=== PATIENT | female | born 2000 | race Two or more races ===

== ENCOUNTER 2021-09-02 20:14 | Emergency (ER) | payer MEDICAID ==
[~2021-09-02] VITALS: Ht 170.2 cm; Wt 121.4 kg
[2021-09-02] MEDS ORDERED: AMOX TR/POT CLAV 875 MG/125 MG TABLET PO ONE (20:45)
[2021-09-02] MEDS ORDERED: PERTUSS(ACELL),DIPH,TET VAC/PF 0.5 ML SYRINGE IM. ONE (20:45)
[2021-09-02 21:30] VITALS: BP 134/77
[2021-09-02] MEDS ORDERED: IBUPROFEN 800 MG TABLET ONE (22:00)
[2021-09-02] MEDS ORDERED: IBUPROFEN 800 MG TABLET PO ONE (22:15)
== END 2021-09-02 22:00 | disposition home or self-care (01) ==
LOC: EMS 20:17
DX: S71.111A Laceration without foreign body, right thigh, initial encounter (principal); W54.0XXA Bitten by dog, initial encounter; Y93.89 Activity, other specified; Y92.89 Other specified places as the place of occurrence of the external cause; Y99.8 Other external cause status
CPT/HCPCS: 90471; 90715; 99283

== ENCOUNTER 2022-02-10 17:00 | Emergency (ER) | payer MEDICAID ==
[~2022-02-10] VITALS: Ht 170.2 cm; Wt 127.3 kg
[2022-02-10] MEDS ORDERED: IBUPROFEN 800 MG TABLET PO ONE (18:15)
[2022-02-10 21:26] VITALS: BP 138/78
== END 2022-02-10 21:31 | disposition home or self-care (01) ==
LOC: EMS 17:00
DX: S93.402A Sprain of unspecified ligament of left ankle, initial encounter (principal); S93.602A Unspecified sprain of left foot, initial encounter; X50.1XXA Overexertion from prolonged static or awkward postures, initial encounter; Y93.89 Activity, other specified; Y92.89 Other specified places as the place of occurrence of the external cause; Y99.8 Other external cause status
CPT/HCPCS: 99284

== ENCOUNTER 2022-05-18 19:18 | Emergency (ER) | payer MEDICAID ==
[~2022-05-18] VITALS: Ht 167.6 cm; Wt 90.9 kg
[2022-05-18] MEDS ORDERED: KETOROLAC TROMETHAMINE 60 MG/2 ML VIAL IM ONE (21:15)
[2022-05-18 22:14] VITALS: BP 128/72
== END 2022-05-18 22:23 | disposition home or self-care (01) ==
LOC: EMS 19:21
DX: S20.212A Contusion of left front wall of thorax, initial encounter (principal); V49.59XA Passenger injured in collision with other motor vehicles in traffic accident, initial encounter; Y93.89 Activity, other specified; Y92.89 Other specified places as the place of occurrence of the external cause; Y99.8 Other external cause status
CPT/HCPCS: 71046; 96372; 99283; J1885

== ENCOUNTER 2023-06-01 17:14 | Emergency (ER) | payer MEDICAID ==
[~2023-06-01] VITALS: Ht 170.2 cm; Wt 140.0 kg
[2023-06-01] MEDS ORDERED: SODIUM CHLORIDE 0.9% 1,000 ML IV ONE (17:30)
[2023-06-01] MEDS ORDERED: ONDANSETRON HCL 4 MG/2 ML VIAL IVP ONE (17:30)
[2023-06-01 17:43] LABS: GLUCOMETER DEV NAME(LOC) ERT.5
[2023-06-01 17:55] LABS: ANION GAP 7 mmol/L (8-16); CALCIUM, TOTAL 9.7 mg/dL (8.8-10.5); CARBON DIOXIDE 28 mmol/L (22-29); CHLORIDE 100 mmol/L (98-107); CREATININE 0.65 mg/dL (0.60-1.30); GLOMERULAR FILTR. RATE CALC > 60 mL/min (>60); GLUCOSE,RANDOM 97 mg/dL (70-110); POTASSIUM 4.1 mmol/L (3.5-5.1); SODIUM SERUM 135 mmol/L (136-145)
[2023-06-01 17:57] LABS: BASOPHILS % (AUTO) 0.5 % (0.0-2.0); EOSINOPHILS % (AUTO) 1.4 % (1.0-6.0); HEMATOCRIT 40.6 % (36-46); HEMOGLOBIN 13.7 g/dL (12.0-16.0); LYMPHOCYTES # (AUTO) 4.8 K/uL (1.0-4.8); LYMPHOCYTES % (AUTO) 42.6 % (22.0-44.0); MEAN CORPUSCULAR HEMOGLOBIN 29.4 pg (26.0-34.0); MEAN CORPUSCULAR HGB CONC 33.8 G/dL (31.0-37.0); MEAN CORPUSCULAR VOLUME 87 fL (80-100); MONOCYTES # (AUTO) 0.6 K/uL (0.1-1.0); MONOCYTES % (AUTO) 5.4 % (2.0-9.0); NEUTROPHILS # (AUTO) 5.6 K/uL (1.8-7.7); NEUTROPHILS % (AUTO) 50.1 % (40.0-70.0); PLATELET COUNT (AUTO) 337 K/uL (150-450); RED BLOOD CELL COUNT(AUTO) 4.67 MIL/uL (4.00-5.20); RED CELL DISTRIBUTION WIDTH 13.7 % (11.5-14.5)
[2023-06-01] MEDS ORDERED: METF-1211 PO (17:58)
[2023-06-01 18:07] LABS: ALANINE AMINOTRANSFERASE 59 U/L (12-78); ALKALINE PHOSPHATASE 87 U/L (46-116); ASPARTATE AMINOTRANSFERASE 25 U/L (15-37); BILIRUBIN,TOTAL 0.4 mg/dL (0.1-1.0); HCG,QUANTITATIVE < 1 mIU/mL (0-6); LIPASE 82 U/L (73-393); TOTAL PROTEIN, SERUM 8.6 g/dL (6.4-8.2)
[2023-06-01 19:43] LABS: APPEARANCE,URINE CLEAR (CLEAR); BILIRUBIN,URINE NEGATIVE (NEGATIVE); GLUCOSE, URINE (UA) NEGATIVE (NEGATIVE); KETONES,URINE NEGATIVE (NEGATIVE); LEUKOCYTE ESTERASE ,URINE NEGATIVE (NEGATIVE); NITRATE,URINE NEGATIVE (NEGATIVE); OCCULT BLOOD,URINE NEGATIVE (NEGATIVE); PH,URINE 5.5 (5.0-8.0); PROTEIN,URINE NEGATIVE (NEGATIVE); SPECIFIC GRAVITIY, URINE 1.011 (1.003-1.030); UROBILINOGEN,URINE <=1.0 mg/dL (<=1.0)
[2023-06-01 19:57] VITALS: BP 149/78; PULSE 72; RESP 17; TEMP 98.3
[2023-06-01] MEDS ORDERED: ONDA-104 PO (19:57)
== END 2023-06-01 20:38 | disposition home or self-care (01) ==
LOC: EMS 17:16
DX: R10.30 Lower abdominal pain, unspecified (principal); E11.9 Type 2 diabetes mellitus without complications
CPT/HCPCS: 99283; 96374; 96361; 80053; 81003; 82962; 83690; 84702; 85025; 36415; J2405; J7030

== ENCOUNTER 2023-06-14 19:15 | Emergency (ER) | payer MEDICAID ==
[~2023-06-14] VITALS: Ht 170.2 cm; Wt 140.0 kg
[~2023-06-14 19:15] MED LIST: METF-1211 PO; ONDA-104 PO
[2023-06-14 20:23] LABS: COVID AG,FIA SOURCE NASAL SWAB
[2023-06-14 20:37] LABS: RAPID GROUP A STREP NEGATIVE (NEGATIVE)
[2023-06-14 20:58] LABS: INFLUENZA TYPE A NEGATIVE FOR TYPE A (NEGATIVE); INFLUENZA TYPE B NEGATIVE FOR TYPE B (NEGATIVE)
[2023-06-14] MEDS ORDERED: ACET-2080 PO (21:51)
[2023-06-14] MEDS ORDERED: IBUP-1554 PO (21:51)
[2023-06-14] MEDS ORDERED: BENZ-227 PO (21:51)
[2023-06-14] MEDS ORDERED: GUAIFDM PO (21:51)
[2023-06-14 22:15] VITALS: BP 132/74; PULSE 93; RESP 16; TEMP 99.3
== END 2023-06-14 22:14 | disposition home or self-care (01) ==
LOC: EMS 19:15
DX: J02.9 Acute pharyngitis, unspecified (principal); J06.9 Acute upper respiratory infection, unspecified; J20.9 Acute bronchitis, unspecified; E11.9 Type 2 diabetes mellitus without complications; Z90.89 Acquired absence of other organs; Z20.822 Contact with and (suspected) exposure to COVID-19
CPT/HCPCS: 87430; 87804; 99283

== ENCOUNTER 2023-08-25 17:11 | Emergency (ER) | payer MEDICAID ==
[~2023-08-25] VITALS: Ht 170.2 cm; Wt 141.8 kg
[~2023-08-25 17:11] MED LIST changes: +ACET-2080 PO; +BENZ-227 PO; +GUAIFDM PO; +IBUP-1554 PO
[2023-08-25 17:17] VITALS: TEMP 98.4
[2023-08-25] MEDS ORDERED: IUD VG (17:24)
[2023-08-25 17:59] LABS: BASOPHILS % (AUTO) 0.8 % (0.0-2.0); HEMATOCRIT 38.7 % (36-46); LYMPHOCYTES # (AUTO) 4.9 K/uL (1.0-4.8); LYMPHOCYTES % (AUTO) 49.3 % (22.0-44.0); MEAN CORPUSCULAR HEMOGLOBIN 29.6 pg (26.0-34.0); MEAN CORPUSCULAR HGB CONC 33.6 G/dL (31.0-37.0); MEAN CORPUSCULAR VOLUME 88 fL (80-100); MONOCYTES # (AUTO) 0.5 K/uL (0.1-1.0); MONOCYTES % (AUTO) 5.4 % (2.0-9.0); NEUTROPHILS # (AUTO) 4.3 K/uL (1.8-7.7); NEUTROPHILS % (AUTO) 42.5 % (40.0-70.0); PLATELET COUNT (AUTO) 343 K/uL (150-450); RED BLOOD CELL COUNT(AUTO) 4.39 MIL/uL (4.00-5.20); RED CELL DISTRIBUTION WIDTH 13.7 % (11.5-14.5)
[2023-08-25 18:06] LABS: ANION GAP 9 mmol/L (8-16); CARBON DIOXIDE 27 mmol/L (22-29); CHLORIDE 102 mmol/L (98-107); CREATININE 0.62 mg/dL (0.60-1.30); GLUCOSE,RANDOM 95 mg/dL (70-110); POTASSIUM 4.1 mmol/L (3.5-5.1); SODIUM SERUM 138 mmol/L (136-145); UREA NITROGEN, BLOOD 9 mg/dL (7-18)
[2023-08-25 18:07] LABS: CALCIUM, TOTAL 9.6 mg/dL (8.8-10.5); GLOMERULAR FILTR. RATE CALC > 60 mL/min (>60)
[2023-08-25] MEDS ORDERED: METF-444 PO (18:12)
[2023-08-25] MEDS ORDERED: ACETAMINOPHEN 500 MG TABLET PO ONE (18:15)
[2023-08-25] MEDS ORDERED: ONDANSETRON HCL 4 MG/2 ML VIAL IVP ONE (18:15)
[2023-08-25] MEDS ORDERED: SODIUM CHLORIDE 0.9% 100 ML ONE (18:17)
[2023-08-25] MEDS ORDERED: IOHEXOL 350 MG/ML 100 ML VIAL ONE (18:17)
[2023-08-25 18:19] LABS: ALANINE AMINOTRANSFERASE 63 U/L (12-78); ALBUMIN 3.8 g/dL (3.4-5.0); ALKALINE PHOSPHATASE 76 U/L (46-116); ASPARTATE AMINOTRANSFERASE 23 U/L (15-37); BILIRUBIN,TOTAL 0.3 mg/dL (0.1-1.0); HCG,QUANTITATIVE < 1 mIU/mL (0-6); LIPASE 39 U/L (16-77); TOTAL PROTEIN, SERUM 7.9 g/dL (6.4-8.2)
[2023-08-25] MEDS ORDERED: KETOROLAC TROMETHAMINE 30 MG/ML VIAL IVP ONE (18:30)
[2023-08-25 19:20] LABS: APPEARANCE,URINE CLEAR (CLEAR); BILIRUBIN,URINE NEGATIVE (NEGATIVE); COLOR,URINE COLORLESS (YELLOW); GLUCOSE, URINE (UA) NEGATIVE (NEGATIVE); KETONES,URINE NEGATIVE (NEGATIVE); LEUKOCYTE ESTERASE ,URINE NEGATIVE (NEGATIVE); NITRATE,URINE NEGATIVE (NEGATIVE); OCCULT BLOOD,URINE NEGATIVE (NEGATIVE); PROTEIN,URINE NEGATIVE (NEGATIVE); SPECIFIC GRAVITIY, URINE 1.006 (1.003-1.030); UROBILINOGEN,URINE <=1.0 mg/dL (<=1.0)
[2023-08-25 23:49] VITALS: BP 132/80; PULSE 79; RESP 16
== END 2023-08-25 23:54 | disposition home or self-care (01) ==
LOC: EMS 17:12
DX: N93.9 Abnormal uterine and vaginal bleeding, unspecified (principal); R10.31 Right lower quadrant pain; E11.9 Type 2 diabetes mellitus without complications; Z98.890 Other specified postprocedural states
CPT/HCPCS: 99285; 74177; 96374; 76856; 96375; 80053; 81003; 83690; 84702; 85025; 36415; J1885; J2405; Q9967; J7050